=== PATIENT | male | born 1960 | race Caucasian/White ===

== ENCOUNTER 2017-03-04 13:21 | Emergency (ER) | payer MEDICARE ==
[2017-03-04 13:58] VITALS: BP 126/70
[2017-03-04] MEDS ORDERED: HYDROmorphone 1 MG/ML Syringe IM ONE (14:12)
--- NOTE | 2017-03-04 14:16 | EDM.PDOC ---
ED HPI GENERAL MEDICAL PROBLEM - General Chief Complaint: Laceration Stated Complaint: RT INDEX FINGER LACERATION Time Seen by Provider: 03/04/17 14:04 Source of Information: Reports: Patient, Family, RN Notes Reviewed History Limitations: Reports: No Limitations - History of Present Illness INITIAL COMMENTS - FREE TEXT/NARRATIVE: 56-year-old gentleman accidentally got his finger caught between a log in a wood splitter this is due to #2 on his right hand this happened about an hour prior bleeding is controlled by the time he arrives he has range of motion of the metacarpal joint however limited range of motion of the distal and proximal interphalangeal joints Right 2-Index finger Pain Score (Numeric/FACES): 5 - Related Data Allergies Allergy/AdvReac Type Severity Reaction Status Date / Time No Known Allergies Allergy Verified 03/04/17 13:56 Home Meds: Home Meds Albuterol [Ventolin HFA] 1 puff INH ASDIRECTED 03/04/17 [History] Ascorbic Acid [Vitamin C] 1 tab PO DAILY 03/04/17 [History] Aspirin [Ecotrin] 1 tab PO DAILY 03/04/17 [History] B12/Levomefolate Calcium/B-6 [Foltx Tablet] 1 tab PO DAILY 03/04/17 [History] Benztropine [Cogentin] 1 tab PO DAILY 03/04/17 [History] Cariprazine Hydrochloride [Vraylar] 1 tab PO BEDTIME 03/04/17 [History] Cholecalciferol (Vitamin D3) [Vitamin D3] 1 tab PO DAILY 03/04/17 [History] Formoterol/Mometasone [Dulera 100 MCG/5 MCG] 1 puff INH ASDIRECTED 03/04/17 [ History] Lurasidone [Latuda] 1 tab PO BEDTIME 03/04/17 [History] Metoprolol Tartrate 1 tab PO BID 03/04/17 [History] Montelukast [Singulair] 1 tab PO DAILY 03/04/17 [History] Ramipril 1 tab PO DAILY 03/04/17 [History] atorvaSTATin [Lipitor] 1 tab PO BEDTIME 03/04/17 [History] Past Medical History HEENT History: Reports: Impaired Vision Cardiovascular History: Reports: CAD, High Cholesterol, Hypertension, MA Respiratory History: Reports: Asthma Psychiatric History: Reports: Depression - Past Surgical History HEENT Surgical History: Reports: Tonsillectomy Cardiovascular Surgical History: Reports: Coronary Artery Stent GI Surgical History: Reports: Appendectomy, Cholecystectomy, Hernia Repair/Other Social & Family History - Tobacco Use Tobacco Use Comment: smokes cigars every day. - Recreational Drug Use Recreational Drug Use: No ED ROS GENERAL - Review of Systems Review Of Systems: See Below Constitutional: Reports: No Symptoms Respiratory: Reports: No Symptoms Cardiovascular: Reports: No Symptoms GI/Abdominal: Reports: No Symptoms Musculoskeletal: Reports: Other (Finger pain) Skin: Reports: Wound ED EXAM, SKIN/RASH Exam: See Below Text/Narrative:: Initial examination of the finger he does have an open laceration starting at the proximal phalange he caring through the distal phalange he is no active bleeding at this time he has full range of motion of the metacarpal joint however limited range of motion of both distal and proximal PIP joints the nail appears to be intact there is no injury to the remainder of the hand radial pulses 2+ ED SKIN PROCEDURES - Laceration/Wound Repair Right Finger Lac/Wound length In cm: 5 (2 wounds one is 2 cm one is 3 cm) Appearance: Muscle, Linear, Clean Distal NVT: Neuro & Vascular Intact, No Tendon Injury Anesthetic Type: Digital Local Anesthesia - Lidocaine (Xylocaine): 1% Plain Local Anesthetic Volume: 3cc Skin Prep: Chlorhexidine (Hibiciens), Saline Saline Irrigation (cc's): 1,000 Exploration/Debridement/Repair: Wound Explored, in a Bloodless Field, Explored to Base Closed with: Sutures Suture Size: 4-0 # of Sutures: 10 Suture Type: Nylon Sterile Dressing Applied: Nurse Tetanus Status Addressed: Yes (2010) Complications: No Course - Vital Signs Last Recorded V/S: Last Vital Signs Temp 98.3 F 03/04/17 14:04 Pulse 85 03/04/17 14:04 Resp 14 03/04/17 14:04 BP 126/70 03/04/17 14:04 Pulse Ox 95 03/04/17 14:04 - Orders/Labs/Meds Orders: Active Orders 24 hr Category Date Time Status Fingers Second Digit Rt F6 [CR] Stat Exams 03/04/17 14:11 Taken Meds: Medications Discontinued Medications Generic Name Dose Route Start Last Admin Trade Name Freq PRN Reason Stop Dose Admin Cefazolin Sodium 1 gm 03/04/17 15:15 07/02/17 15:19 Ancef IM 03/04/17 15:16 1 gm ONETIME ONE Administration Hydromorphone HCl 1 mg 03/04/17 14:12 03/04/17 14:29 Dilaudid IM 03/04/17 14:13 1 mg ONETIME ONE Administration Lidocaine HCl 5 ml 03/04/17 14:37 03/04/17 15:19 Xylocaine-Mpf 1% INJECT 03/04/17 14:38 5 ml ONETIME ONE Administration Departure - Departure Time of Disposition: 15:48 Disposition: Home, Self-Care 01 Condition: Good Clinical Impression: Open fracture of phalanx of right index finger Qualifiers: Encounter type: initial encounter Phalanx: distal Fracture alignment: nondisplaced Qualified Code(s): S62.660B - Nondisplaced fracture of distal phalanx of right index finger, initial encounter for open fracture Laceration of finger, right Qualifiers: Encounter type: initial encounter Finger: index finger Damage to nail status: with damage Foreign body presence: without foreign body Qualified Code(s): S61.310A - Laceration without foreign body of right index finger with damage to nail, initial encounter Fracture of proximal phalanx of right index finger Qualifiers: Encounter type: initial encounter Fracture type: open Fracture alignment: nondisplaced Qualified Code(s): S62.640B - Nondisplaced fracture of proximal phalanx of right index finger, initial encounter for open fracture - Discharge Information Forms: ED Department Discharge Additional Instructions: Take full course of antibiotics, use hydrocodone as needed for pain control please follow-up with your primary care provider upon return home - My Orders Last 24 Hours: My Active Orders 03/04/17 14:11 Fingers Second Digit Rt F6 [CR] Stat - Assessment/Plan Last 24 Hours: My Active Orders 03/04/17 14:11 Fingers Second Digit Rt F6 [CR] Stat Plan: Assessment Acuity = acute Site and laterality = crush injury digit #1 right hand 2 lacerations the medial side has a 2 cm laceration partially through the dermis the lateral side has a 3 cm laceration through the dermis into the muscle with visible bone, there is a distal tuft fracture on the distal phalange there is a midshaft fracture proximal phalange both are minimally displaced Etiology = secondary crush injury in a wood splitter Manifestations = pain Location of injury = Home Lab values = x-ray shows fractures described above Plan I did review films with him he is placed in a little splint 15 flexed station he is able to close his fist without deviation of the fingers, he was given 1 g Ancef while in the ED discharge home on Keflex for 7 days plus total #20 hydrocodone he is to follow-up with his primary care provider upon return home with possible referral to orthopedics disc was sent with him of images Patient was in agreement with the plan all questions were answered, they were instructed to return to the emergency department or call for worsening symptoms. This note was dictated using [employer] voice recognition software please call with any questions.
[2017-03-04] MEDS ORDERED: ceFAZolin 1 GM Vial IM ONE (15:15)
--- NOTE | 2017-03-05 10:07 | CR ---
Arthritic change DIP joint. Distal tuft fracture is evident. No displacement. Proximal phalanx intac t. Degenerative changes second and third M CP joints.
== END 2017-03-04 16:15 | disposition home or self-care (01) ==
LOC: JP.ED 13:21
DX: S62.660B Nondisplaced fracture of distal phalanx of right index finger, initial encounter for open fracture (principal); S62.640B Nondisplaced fracture of proximal phalanx of right index finger, initial encounter for open fracture; S61.310A Laceration without foreign body of right index finger with damage to nail, initial encounter; I25.2 Old myocardial infarction; I10 Essential (primary) hypertension; I25.10 Atherosclerotic heart disease of native coronary artery without angina pectoris; E78.00 Pure hypercholesterolemia, unspecified; J45.909 Unspecified asthma, uncomplicated; F32.9 Major depressive disorder, single episode, unspecified; F17.210 Nicotine dependence, cigarettes, uncomplicated; Z79.82 Long term (current) use of aspirin; Z79.899 Other long term (current) drug therapy; Z95.5 Presence of coronary angioplasty implant and graft; Z90.49 Acquired absence of other specified parts of digestive tract; Z98.890 Other specified postprocedural states; W23.1XXA Caught, crushed, jammed, or pinched between stationary objects, initial encounter
CPT/HCPCS: 12002; 73140; 96372; 99284; J0690; J1170